=== PATIENT | male | born 1985 | race Caucasian/White ===

== ENCOUNTER 2019-08-23 13:26 | Emergency (ER) | payer OTHER, SELFPAY ==
[2019-08-23 13:39] VITALS: BP 128/79; PULSE 87; RESP 17; TEMP 36.8; O2SAT 98
--- NOTE | 2019-08-23 14:12 | ED.ABDPAIN ---
HPI - Abdominal Pain General Chief Complaint: Eye Problems Stated Complaint: Foreign Body Eye Time Seen by Provider: 08/23/19 13:36 Source: patient Mode of arrival: ambulatory Limitations: no limitations History of Present Illness HPI narrative: Patient is a 33-year-old female who presents to emergency department for evaluation of to the list of injury to the right eye that occurred while grinding irrigated the eye extensively after the the foreign body in the eye that occurred while grinding vinyl patient on arrival to emergency department is resting comfortably in the room notes his tetanus to be up-to-date patient has not taken anything for pain denies other complaints or injuries and is otherwise resting comfortably in the room upon arrival Related Data Allergies Allergy/AdvReac Type Severity Reaction Status Date / Time No Known Allergies Allergy Verified 08/23/19 13:44 Review of Systems Review of Systems: Narrative: CONSTITUTIONAL: Denies fever, chills, or sweats. ENT: Denies rhinorrhea, congestion, sore throat, or otalgia. RESPIRATORY: Denies cough GASTROINTESTINAL: Denies nausea, vomiting SKIN: Denies rash or itching. NEUROLOGIC: Denies headache PMFSH Social History Social History (Updated 08/23/19 @ 14:20 by Mike Patterson PA-C) Smoking status: Current every day smoker Gender identity (if verbalized by the patient): Male Exam Narrative: Exam Narrative: GENERAL: Well-appearing, well-nourished, and in no acute distress. HEAD: Normocephalic, atraumatic. EYES: PERRLA and EOMI. right eye with conjunctival injection clear discharge negative fluorescein uptake no foreign bodies ENT: Nares clear, no rhinorrhea or epistaxis. Mucous membranes moist. SKIN: Warm, dry, no rash. NEURO: No focal deficits. Alert and oriented x3. Cranial nerves II through XII grossly intact. Normal speech and gait PSYCH: Normal mood and affect. Course Course Emergency Course: Patient in the room in no distress aware of case findings treatment plan and diagnosis agreeing to follow-up with ophthalmology as instructed provided with reasons to return Vital Signs Vital signs: Vital Signs Temperature 98.2 F 08/23/19 13:39 Pulse Rate 87 08/23/19 13:39 Respiratory Rate 17 08/23/19 13:39 Blood Pressure 128/79 08/23/19 13:39 Pulse Oximetry 98 08/23/19 13:39 Temperature 98.2 F 08/23/19 13:39 Pulse Rate 87 08/23/19 13:39 Respiratory Rate 17 08/23/19 13:39 Blood Pressure 128/79 08/23/19 13:39 Pulse Oximetry 98 08/23/19 13:39 MDM - Abdominal Pain MDM Narrative Medical decision making narrative: Patient in the room in no distress aware of case findings treatment plan and diagnosis agreeing to follow-up as directed Discharge Plan Discharge Clinical Impression: Conjunctivitis Patient Disposition: Home, Self-Care Condition: Stable Instructions: Antibiotic Form, Conjunctivitis (ED) Additional Instructions: Follow up with your primary care doctor in 5-7 days for re-evaluation. Go to ER for worsening pain, vision changes, nausea/vomiting, fever/chills, weakness, chest pain, shortness of breath, numbness/tingling, slurred speech, difficulty walking, change in mental status etc. or any other concerns. Follow-up with ophthalmology by phone today to set up for reevaluation in the next 3 days Take any prescribed medications as directed. Use [id number] preservative-free tears for symptom relief Prescriptions: New erythromycin 5 mg/gram (0.5 %) ointment 1 applic RIGHT EYE Q6H Qty: 1 RF: 0 Follow-up/Referrals: PHYSICIAN,JOINERS SUPERVISOR [Primary Care Provider] - Danis Lowry [Outside] Danis Field [Outside]
== END 2019-08-23 14:32 | disposition home or self-care (01) ==
PROVIDERS: Emergency Provider Emergency Medicine
DX: H10.9 Unspecified conjunctivitis (principal); F17.200 Nicotine dependence, unspecified, uncomplicated
CPT/HCPCS: 99283; A9270